=== PATIENT | female | born 1945 | race Caucasian/White ===

== ENCOUNTER → 2018-04-22 | Outpatient (CLI) | payer MEDICARE, OTHER | END | disposition home or self-care (01) | LOC: CFH 09:45 | PROVIDERS: ATTEND Internal Medicine | DX: Z12.31 Encounter for screening mammogram for malignant neoplasm of breast (principal); Z13.820 Encounter for screening for osteoporosis; M85.88 Other specified disorders of bone density and structure, other site; N95.9 Unspecified menopausal and perimenopausal disorder; Z80.3 Family history of malignant neoplasm of breast | CPT/HCPCS: 77063; 77080; 77067 ==

== ENCOUNTER 2019-10-27 08:58 | Outpatient (CLI) | payer MEDICARE ==
[2019-10-27 13:09] LABS: ALBUMIN 4.1 g/dL (3.4-5.0); ANION GAP 7 mmol/L (5-15); CALCIUM 9.3 mg/dL (8.5-10.1); CHLORIDE 103 mmol/L (98-107)
[2019-10-27 13:13] LABS: ALANINE AMINOTRANSFERASE 31 U/L (12-78); ALKALINE PHOSPHATASE 67 U/L (45-117); BASOPHILS # (AUTO) 0.05 x10^3/uL (0-0.1); BASOPHILS % (AUTO) 1 % (0-1); BILIRUBIN,TOTAL 0.6 mg/dL (0.2-1.0); CHOL/HDL RATIO 2.1; CHOLESTEROL, TOTAL 208 mg/dL (140-239); CREATININE 1.12 mg/dL (0.55-1.02); EOSINOPHILS # (AUTO) 0.11 x10^3/uL (0-0.4); EOSINOPHILS % (AUTO) 3 % (1-7); HDL CHOL % 47 % (28-40); HDL CHOLESTEROL (DIRECT) 98 mg/dL (40-60); LDL CHOLESTEROL,CALCULATED 99 mg/dL (54-169); LYMPHOCYTES # (AUTO) 1.16 x10^3/uL (1-3.4); LYMPHOCYTES % (AUTO) 30 % (22-44); MD NO; MEAN CORPUSCULAR HEMOGLOBIN 32.2 pg (27.0-34.8); MEAN CORPUSCULAR HGB CONC 33.7 g/dL (32.4-35.8); MEAN CORPUSCULAR VOLUME 95.3 fL (80-100); MEAN PLATELET VOLUME 8.8 fL (7.4-10.4); MONOCYTES # (AUTO) 0.32 x10^3/uL (0.2-0.8); MONOCYTES % (AUTO) 8 % (2-9); NEUTROPHILS # (AUTO) 2.24 x10^3/uL (1.8-6.8); NEUTROPHILS % (AUTO) 58 % (42-75); PLATELET COUNT 179 x10^3/uL (130-400); RED BLOOD COUNT 4.46 x10^6/uL (3.82-5.3); RED CELL DISTRIBUTION WIDTH 12.2 % (9.6-15.2); TOTAL PROTEIN 7.8 g/dL (6.4-8.2); TRIGLYCERIDES 54 mg/dL (50-200); VLDL CHOLESTEROL 11 mg/dL (0-25)
== END 2019-10-27 23:59 | disposition home or self-care (01) ==
LOC: CFH 08:58
PROVIDERS: ATTEND Internal Medicine
DX: Z13.220 Encounter for screening for lipoid disorders (principal); I47.9 Paroxysmal tachycardia, unspecified; R00.2 Palpitations; N18.2 Chronic kidney disease, stage 2 (mild)
CPT/HCPCS: 36415; 80053; 80061; 85025

== ENCOUNTER → 2020-06-28 | Outpatient (CLI) | payer MEDICARE | END | disposition home or self-care (01) | LOC: CFH 09:15 | PROVIDERS: ATTEND Licensed Practical Nurse | DX: Z12.31 Encounter for screening mammogram for malignant neoplasm of breast (principal); M85.9 Disorder of bone density and structure, unspecified; M85.80 Other specified disorders of bone density and structure, unspecified site; N95.9 Unspecified menopausal and perimenopausal disorder | CPT/HCPCS: 76641; 77063; 77067; 77080 ==